=== PATIENT | male | born 1970 | race American Indian/Alaskan Native ===

== ENCOUNTER 2016-08-27 19:46 | Observation (INO) | payer MEDICARE, OTHER ==
[2016-08-27 19:50] VITALS: BMI 27.7
[2016-08-27] MEDS ORDERED: Nitroglycerin 2% Ointment Foilpak UD TOP STA (20:14)
[2016-08-27] MEDS ORDERED: Morphine 2 mg/ml ISec IVP STA (20:14)
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
[2016-08-27 20:27] LABS: HEMATOCRIT 35.9 % (42.0-52.0); MEAN CELL VOLUME 82.9 fL (80.0-105.0); MEAN CORPUSCULAR HEMOGLOBIN 27.9 pg (25.0-35.0); MEAN CORPUSCULAR HGB CONC 33.7 g/dl (31.0-37.0); MEAN PLATELET VOLUME 9.4 fl (7.0-11.0); WHITE BLOOD COUNT 6.7 10^3/ul (4.5-11.0)
[2016-08-27 20:32] LABS: INR 1.02 (0.93-1.08); PARTIAL THROMBOPLASTIN TIME 27.7 Seconds (23.7-30.8)
[2016-08-27 20:50] LABS: ALB/GLOB RATIO 1.2 (1.1-1.8); ALKALINE PHOSPHATASE 42 U/L (38-133); ALT/SGPT 34 U/L (7-56); AST/SGOT 30 U/L (15-59); BILIRUBIN,TOTAL 0.6 mg/dL (0.2-1.3); BLOOD UREA NITROGEN 14 mg/dL (7-21); CALCIUM 9.6 mg/dL (8.4-10.5); CARBON DIOXIDE 24 mmol/L (21-33); CHLORIDE 102 mmol/L (98-107); GFR AFRICAN-AMERICAN > 60; GLUCOSE,RANDOM 98 mg/dL (70-110); POTASSIUM 3.6 mmol/L (3.6-5.0); SODIUM 138 mmol/L (132-148); TOTAL PROTEIN 8.4 g/dL (5.8-8.3)
[2016-08-27 21:01] LABS: TROPONIN I < 0.01 ng/mL
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
[2016-08-28 03:51] VITALS: RESP 20
[2016-08-28 03:54] VITALS: O2SAT 100
--- NOTE | 2016-08-28 08:00 | RAD ---
HISTORY: fever COMPARISON: 03/28/2015 FINDINGS: LUNGS: No active pulmonary disease. PLEURA: No significant pleural effusion identified, no pneumothorax apparent. CARDIOVASCULAR: Normal. OSSEOUS STRUCTURES: No significant abnormalities. VISUALIZED UPPER ABDOMEN: Normal. OTHER FINDINGS: None. IMPRESSION: No active disease.
[2016-08-28 09:55] LABS: ALB/GLOB RATIO 1.2 (1.1-1.8); ALKALINE PHOSPHATASE 41 U/L (38-133); ALT/SGPT 28 U/L (7-56); AST/SGOT 22 U/L (15-59); BILIRUBIN,TOTAL 0.9 mg/dL (0.2-1.3); BLOOD UREA NITROGEN 15 mg/dL (7-21); CALCIUM 9.4 mg/dL (8.4-10.5); CARBON DIOXIDE 24 mmol/L (21-33); CHLORIDE 103 mmol/L (98-107); CHOLESTEROL 232 mg/dL (130-200); GFR AFRICAN-AMERICAN > 60; GLUCOSE,RANDOM 121 mg/dL (70-110); POTASSIUM 3.8 mmol/L (3.6-5.0); SODIUM 138 mmol/L (132-148)
[2016-08-28 10:06] LABS: HEMATOCRIT 35.1 % (42.0-52.0); MEAN CORPUSCULAR HEMOGLOBIN 27.6 pg (25.0-35.0); MEAN CORPUSCULAR HGB CONC 32.5 g/dl (31.0-37.0); MEAN PLATELET VOLUME 10.2 fl (7.0-11.0); RED CELL DISTRIBUTION WIDTH 16.8 % (11.5-14.5); WHITE BLOOD COUNT 7.5 10^3/ul (4.5-11.0)
[2016-08-28] MEDS ORDERED: Barium Sulfate Susp 2.1% w/v, 2.0% w/w 450 mL Bottle PO ONE (10:18)
[2016-08-28 10:26] LABS: FREE T4 0.84 ng/dL (0.78-2.19)
[2016-08-28 10:40] LABS: THYROID STIMULATING HORMONE 1.26 mIU/mL (0.46-4.68)
--- NOTE | 2016-08-28 11:20 | CARD ---
APPROVED REPORT EKG Measurement Heart [id number] <Conclusion> Normal sinus rhythm Inferior infarct, age undetermined Abnormal ECG
--- NOTE | 2016-08-28 11:28 | CARD ---
APPROVED REPORT EKG Measurement Heart [id number] [place] [id number] <Conclusion> Sinus bradycardia Possible Inferior infarct, age undetermined Abnormal ECG
[2016-08-28] MEDS ORDERED: Albuterol 0.5% Inhal Sol (2.5 mg/0.5 ml) UD IH PRN (11:36)
--- NOTE | 2016-08-28 12:18 | CON ---
DATE: 08/28/2016 HISTORY OF PRESENT ILLNESS: The patient is a 46-year-old male who presented with what was described as epigastric discomfort. The patient's description is predominantly epigastric or periumbilical. N o chest pain noted. PAST MEDICAL HISTORY: Is stated to have a myocardial infarction over 10 years ago. He suffers from hypertension, COPD, and he continues to smoke. He stopped his medications on his own reasons. SOCIAL HISTORY: Active smoker. REVIEW OF SYSTEMS: A 14-point review of systems was reviewed in detail. No cardiac symptomatology w as noted. PHYSICAL EXAMINATION: VITAL SIGNS: Stable. NECK: Negative JVD. LUNGS: Without rales. HEART: Reveals S1, S2. EXTREMITIES: Without edema. LABORATORY DATA: EKG is within normal limits. Troponins are negative x 3. IMPRESSION: 1. Atypical chest pain, predominantly abdominal pain. 2. Questionable history of an old myocardial infarction. 3. Chronic obstructive pulmonary disease. 4. No evidence for acute coronary syndrome. 5. Consistent noncompliance with medications, although he is followed by Dr. Narayan in [place]. PLAN: Given these findings, we will discontinue telemetry today. I have discussed with the patient about the need to be back on aspirin as well as his hypertensive medications. The patient is agreeable. I have discussed with the patient about the need to stop smoking. We will arrange for an outpatient stress test. We will discontinue telemetry today. Den Grant MD cc: [id number] TT: 08/28/2016 12:17:29 Confirmation # [id number] Dictation # [id number] an
[2016-08-28 12:35] VITALS: BP 125/62; PULSE 62
[2016-08-28 13:00] VITALS: TEMP 98.2
--- NOTE | 2016-08-28 15:28 | CT ---
PROCEDURE: CT Abdomen and Pelvis without intravenous contrast HISTORY: RLQ pain COMPARISON: None. TECHNIQUE: Without contrast. Contrast Dose: Radiation dose: Total exam DLP = 1004 mGy-cm. This CT exam was performed using one or more of the following dose reduction techniques: Automated exposure control, adjustment of the mA and/or kV according to patient size, and/or use of iterative reconstruction technique. FINDINGS: LOWER THORAX: Unremarkable. LIVER: Unremarkable. No gross lesion or ductal dilatation. GALLBLADDER AND BILE DUCTS: Unremarkable. PANCREAS: Unremarkable. No gross lesion or ductal dilatation. SPLEEN: Unremarkable. ADRENALS: Unremarkable. No mass. KIDNEYS AND URETERS: Unremarkable. No hydronephrosis. No solid mass. VASCULATURE: Unremarkable. No aortic aneurysm. BOWEL: Unremarkable. No obstruction. No gross mural thickening. APPENDIX: Unremarkable. Normal appendix. PERITONEUM: Unremarkable. No free fluid. No free air. LYMPH NODES: Unremarkable. No enlarged lymph nodes. BLADDER: Unremarkable. REPRODUCTIVE: Unremarkable. BONES: No acute fracture. OTHER FINDINGS: None. IMPRESSION: No acute findings. No evidence of appendicitis
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
[2016-08-28 20:22] LABS: URINE APPEARANCE CLEAR (CLEAR); URINE BILIRUBIN NEGATIVE (NEGATIVE); URINE BLOOD NEGATIVE (NEGATIVE); URINE COLOR YELLOW (YELLOW); URINE GLUCOSE (UA) NEGATIVE (NEGATIVE); URINE KETONE NEGATIVE (NEGATIVE); URINE LEUKOCYTE ESTERASE NEGATIVE Leu/uL (NEGATIVE); URINE PROTEIN NEGATIVE mg/dL (<30 mg/dL); URINE UROBILINOGEN 0.2 E.U./dL (<1 E.U./dL)
== END 2016-08-28 19:38 | disposition home or self-care (01) ==
LOC: ED 19:46 → ERH 08-28 00:23 → 2RNO 08-28 02:57
PROVIDERS: ADMIT Hospitalist; ATTEND Internal Medicine
DX: R07.89 Other chest pain (principal); J44.9 Chronic obstructive pulmonary disease, unspecified; Z91.14 Patient's other noncompliance with medication regimen; F17.210 Nicotine dependence, cigarettes, uncomplicated; I25.2 Old myocardial infarction; I10 Essential (primary) hypertension; M54.9 Dorsalgia, unspecified; K59.00 Constipation, unspecified; R10.31 Right lower quadrant pain; R68.84 Jaw pain
CPT/HCPCS: 71010; 74176; 80053; 80061; 81003; 82550; 83036; 83615; 84439; 84443; 84484; 85027; 85610; 85730; 93005; 96372; 96374; 99285; G0378; G0480; J1644; J2270

== ENCOUNTER 2017-11-28 01:23 | Observation (INO) | payer MEDICARE, OTHER ==
[2017-11-28 01:44] VITALS: O2SAT 96
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
[2017-11-28 02:45] LABS: BASO # 0.03 K/mm3 (0.0-2.0); BASO % 0.4 % (0.0-3.0); EOS % 0.5 % (1.5-5.0); GRAN # 3.36 (1.4-6.5); GRAN % 42.9 % (50.0-68.0); LYMPH # 3.7 (1.2-3.4); LYMPH % 46.7 % (22.0-35.0); MEAN CELL VOLUME 81.1 fl (80.0-105.0); MEAN CORPUSCULAR HEMOGLOBIN 27.5 pg (25.0-35.0); MEAN CORPUSCULAR HGB CONC 33.9 g/dl (31.0-37.0); MEAN PLATELET VOLUME 10.2 fl (7.0-11.0); MONO # 0.7 (0.1-0.6); MONO % 9.5 % (1.0-6.0); RBC 4.72 10^6/uL (3.5-6.1); WHITE BLOOD COUNT 7.8 10^3/ul (4.5-11.0)
[2017-11-28 02:49] LABS: ALB/GLOB RATIO 1.3 (1.1-1.8); ALBUMIN 4.2 g/dL (3.0-4.8); ALT/SGPT 28 U/L (7-56); AST/SGOT 35 U/L (17-59); BLOOD UREA NITROGEN 24 mg/dL (7-21); CALCIUM 9.2 mg/dL (8.4-10.5); GFR AFRICAN-AMERICAN > 60; GFR NON-AFRICAN AMERICAN > 60
[2017-11-28 02:51] LABS: INR 1.01 (0.93-1.08); PARTIAL THROMBOPLASTIN TIME 30.5 Seconds (25.1-36.5); PROTHROMBIN TIME 11.5 SECONDS (9.4-12.5)
[2017-11-28 03:02] LABS: TROPONIN I < 0.01 ng/mL
[2017-11-28] MEDS ORDERED: Albuterol-Ipratrop 3 mg / 0.5 (3 ml) UD IH PRN (04:31)
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
[2017-11-28 06:17] VITALS: BMI 25.0
[2017-11-28 06:56] LABS: BASO # 0.03 K/mm3 (0.0-2.0); BASO % 0.4 % (0.0-3.0); EOS # 0.1 (0.0-0.7); GRAN # 2.63 (1.4-6.5); GRAN % 38.6 % (50.0-68.0); LYMPH # 3.4 (1.2-3.4); LYMPH % 50.2 % (22.0-35.0); MEAN CELL VOLUME 81.8 fl (80.0-105.0); MEAN CORPUSCULAR HEMOGLOBIN 27.5 pg (25.0-35.0); MEAN CORPUSCULAR HGB CONC 33.7 g/dl (31.0-37.0); MEAN PLATELET VOLUME 9.8 fl (7.0-11.0); MONO # 0.7 (0.1-0.6); MONO % 9.8 % (1.0-6.0); RBC 4.72 10^6/uL (3.5-6.1); WHITE BLOOD COUNT 6.8 10^3/ul (4.5-11.0)
[2017-11-28 07:25] LABS: ALB/GLOB RATIO 1.3 (1.1-1.8); ALBUMIN 4.1 g/dL (3.0-4.8); ALT/SGPT 23 U/L (7-56); AST/SGOT 24 U/L (17-59); BLOOD UREA NITROGEN 27 mg/dL (7-21); CALCIUM 9.2 mg/dL (8.4-10.5); GFR AFRICAN-AMERICAN > 60; GFR NON-AFRICAN AMERICAN > 60; HDL CHOLESTEROL 60 mg/dL (29-60)
[2017-11-28 07:28] LABS: TROPONIN I < 0.01 ng/mL
[2017-11-28 07:35] LABS: LDL CHOLESTEROL 86 mg/dL (0-129)
--- NOTE | 2017-11-28 09:17 | RAD ---
Date of service: 11/28/2017 HISTORY: CHEST PAIN COMPARISON: 08/27/2016 FINDINGS: LUNGS: No active pulmonary disease. PLEURA: No significant pleural effusion identified, no pneumothorax apparent. CARDIOVASCULAR: Normal. OSSEOUS STRUCTURES: No significant abnormalities. VISUALIZED UPPER ABDOMEN: Normal. OTHER FINDINGS: None. IMPRESSION: No active disease.
[2017-11-28] MEDS ORDERED: Enoxaparin 40 mg Syringe SC SCH (10:00)
--- NOTE | 2017-11-28 17:11 | CP.PCM.DIS ---
<Charlie Miramontes - Last Filed: 11/28/17 17:08> Provider - Provider Date of Admission: 11/28/17 03:43 Attending physician: Osman Gillette MD Primary care physician: Miky Olivier MD Time Spent in preparation of Discharge (in minutes): 45 Diagnosis - Discharge Diagnosis (1) Atypical chest pain Status: Acute Priority: Medium (2) Hypertension Status: Chronic Priority: High Hospital Course - Lab Results Lab Results: Most Recent Lab Values WBC 6.8 10^3/ul (4.5-11.0) 11/28/17 06:00 RBC 4.72 10^6/uL (3.5-6.1) 11/28/17 06:00 Hgb 13.0 g/dL (14.0-18.0) L 11/28/17 06:00 Hct 38.6 % (42.0-52.0) L 11/28/17 06:00 MCV 81.8 fl (80.0-105.0) 11/28/17 06:00 MCH 27.5 pg (25.0-35.0) 11/28/17 06:00 MCHC 33.7 g/dl (31.0-37.0) 11/28/17 06:00 RDW 16.0 % (11.5-14.5) H 11/28/17 06:00 Plt Count 250 10^3/uL (120.0-450.0) 11/28/17 06:00 MPV 9.8 fl (7.0-11.0) 11/28/17 06:00 Gran % 38.6 % (50.0-68.0) L 11/28/17 06:00 Lymph % (Auto) 50.2 % (22.0-35.0) H 11/28/17 06:00 Burnet % (Auto) 9.8 % (1.0-6.0) H 11/28/17 06:00 Eos % (Auto) 1.0 % (1.5-5.0) L 11/28/17 06:00 Baso % (Auto) 0.4 % (0.0-3.0) 11/28/17 06:00 Gran # 2.63 (1.4-6.5) 11/28/17 06:00 Lymph # (Auto) 3.4 (1.2-3.4) 11/28/17 06:00 Burnet # (Auto) 0.7 (0.1-0.6) H 11/28/17 06:00 Eos # (Auto) 0.1 (0.0-0.7) 11/28/17 06:00 Baso # (Auto) 0.03 K/mm3 (0.0-2.0) 11/28/17 06:00 PT 11.5 SECONDS (9.4-12.5) 11/28/17 01:35 INR 1.01 (0.93-1.08) 11/28/17 01:35 APTT 30.5 Seconds (25.1-36.5) 11/28/17 01:35 Sodium 141 mmol/L (132-148) 11/28/17 06:00 Potassium 4.0 mmol/L (3.6-5.0) 11/28/17 06:00 Chloride 107 mmol/L (98-107) 11/28/17 06:00 Carbon Dioxide 25 mmol/L (21-33) 11/28/17 06:00 Anion Gap 14 (10-20) 11/28/17 06:00 BUN 27 mg/dL (7-21) H 11/28/17 06:00 Creatinine 0.9 mg/dl (0.8-1.5) 11/28/17 06:00 Est GFR ( Amer) > 60 11/28/17 06:00 Est GFR (Non-Af Amer) > 60 11/28/17 06:00 Random Glucose 87 mg/dL (70-110) 11/28/17 06:00 Hemoglobin A1c 5.6 % (4.2-6.5) 11/28/17 06:00 Calcium 9.2 mg/dL (8.4-10.5) 11/28/17 06:00 Magnesium 2.2 mg/dL (1.7-2.2) 11/28/17 06:00 Total Bilirubin 0.4 mg/dL (0.2-1.3) 11/28/17 06:00 AST 24 U/L (17-59) 11/28/17 06:00 ALT 23 U/L (7-56) 11/28/17 06:00 Alkaline Phosphatase 42 U/L (38-126) 11/28/17 06:00 Lactate Dehydrogenase 321 U/L (333-699) L 11/28/17 01:35 Total Creatine Kinase 120 U/L (35-230) 11/28/17 01:35 Troponin I < 0.01 ng/mL 11/28/17 12:00 Total Protein 7.2 g/dL (5.8-8.3) 11/28/17 06:00 Albumin 4.1 g/dL (3.0-4.8) 11/28/17 06:00 Globulin 3.2 gm/dL 11/28/17 06:00 Albumin/Globulin Ratio 1.3 (1.1-1.8) 11/28/17 06:00 Triglycerides 147 mg/dL (35-160) 11/28/17 06:00 Cholesterol 184 mg/dL (130-200) 11/28/17 06:00 LDL Cholesterol Direct 86 mg/dL (0-129) 11/28/17 06:00 HDL Cholesterol 60 mg/dL (29-60) 11/28/17 06:00 TSH 3rd Generation 1.83 mIU/mL (0.46-4.68) 11/28/17 06:00 - Hospital Course Hospital Course: Patient is a 47 year old male with a past medical history of hypertension who was admitted for evaluation and treatment of chest pain. With the use of physical examinations, lab work, and imaging the patient was diagnosed with and treated for chest pain along with the patients chronic medical conditions. During their hospital stay the patient was seen by cardiology (Dr. Castañeda) whose recommendations were both appreciated and utilized in the care for this patient. Acute coronary syndrome was ruled out as troponins were less than 0.01 x 3 and the EKG revealed NSR, HR 54 bpm, QTc 408ms, and no defining ST T wave changes. Dr. Castañeda determined that the patient did not require further inpatient cardiology work up. During their hospital stay the patient underwent a chest xray which was reviewed, appreciated, and utilized in the management of the patients clinical course. CXR revealed no active disease. The patient was treated with aspirin, statin, hctz, lisinopril, amongst other empiric/ therapeutic medications. At this time the patient is medically stable for discharge. Patient understands and appreciates discharge plan. Patient instructed to follow up with primary care physician and referrals within three to five days from discharge. Furthermore, the patient is instructed to take medications as prescribed and to return to emergency room for evaluation of intractable headache, fever, chills, dizziness, chest pain, shortness of breath , abdominal pain, nausea, vomiting, diarrhea, constipation, and urinary symptoms. This is a brief summary of the patients hospital course. Please see patient chart for full details Discharge Exam - Additional Findings Additional findings: - Constitutional Appears: No Acute Distress - Head Exam Head Exam: ATRAUMATIC, NORMAL INSPECTION, NORMOCEPHALIC - Eye Exam Eye Exam: EOMI - ENT Exam ENT Exam: Mucous Membranes Moist - Neck Exam Neck exam: Positive for: Full Rom, Normal Inspection - Respiratory Exam Respiratory Exam: Clear to Auscultation Bilateral, NORMAL BREATHING PATTERN. absent: Rales, Rhonchi, Wheezes, Stridor - Cardiovascular Exam Cardiovascular Exam: REGULAR RHYTHM, RRR, +S1, +S2 - GI/Abdominal Exam GI & Abdominal Exam: Normal Bowel Sounds, Soft. absent: Distended - Extremities Exam Extremities exam: Positive for: full ROM, normal inspection. Negative for: calf tenderness, joint swelling, pedal edema - Neurological Exam Neurological exam: Alert, Patient is awake, alert, responds to verbal stimuli, answers questions appropriately, follows commands, and moves extremities past midline - Psychiatric Exam Psychiatric exam: Normal Affect, Normal Mood - Skin Skin Exam: Dry, Normal Color Discharge Plan - Follow Up Plan Condition: STABLE Disposition: HOME/ ROUTINE Instructions: Quitting Smoking for Older Adults, Chest Pain (DC), Quitting Smoking, Drugs to Help You Stop Using Tobacco Additional Instructions: Patient Instructions: 1. Take medications as prescribed. 2. Follow up with your primary care physician and referrals within three to five days from discharge. 3. Return to the emergency room for evaluation of worsening symptoms and/or intractable headache, fever, chills, dizziness, chest pain, shortness of breath , abdominal pain, nausea, vomiting, diarrhea, constipation, and urinary symptoms. Referrals: Miky Olivier MD [Primary Care Provider] - Willis Webb MD [Staff Provider] - <Osman Gillette - Last Filed: 11/29/17 12:32> Provider - Provider Date of Admission: 11/28/17 03:43 Attending physician: Osman Gillette MD Primary care physician: Miky Olivier MD Hospital Course - Lab Results Lab Results: Most Recent Lab Values WBC 6.8 10^3/ul (4.5-11.0) 11/28/17 06:00 RBC 4.72 10^6/uL (3.5-6.1) 11/28/17 06:00 Hgb 13.0 g/dL (14.0-18.0) L 11/28/17 06:00 Hct 38.6 % (42.0-52.0) L 11/28/17 06:00 MCV 81.8 fl (80.0-105.0) 11/28/17 06:00 MCH 27.5 pg (25.0-35.0) 11/28/17 06:00 MCHC 33.7 g/dl (31.0-37.0) 11/28/17 06:00 RDW 16.0 % (11.5-14.5) H 11/28/17 06:00 Plt Count 250 10^3/uL (120.0-450.0) 11/28/17 06:00 MPV 9.8 fl (7.0-11.0) 11/28/17 06:00 Gran % 38.6 % (50.0-68.0) L 11/28/17 06:00 Lymph % (Auto) 50.2 % (22.0-35.0) H 11/28/17 06:00 Burnet % (Auto) 9.8 % (1.0-6.0) H 11/28/17 06:00 Eos % (Auto) 1.0 % (1.5-5.0) L 11/28/17 06:00 Baso % (Auto) 0.4 % (0.0-3.0) 11/28/17 06:00 Gran # 2.63 (1.4-6.5) 11/28/17 06:00 Lymph # (Auto) 3.4 (1.2-3.4) 11/28/17 06:00 Burnet # (Auto) 0.7 (0.1-0.6) H 11/28/17 06:00 Eos # (Auto) 0.1 (0.0-0.7) 11/28/17 06:00 Baso # (Auto) 0.03 K/mm3 (0.0-2.0) 11/28/17 06:00 PT 11.5 SECONDS (9.4-12.5) 11/28/17 01:35 INR 1.01 (0.93-1.08) 11/28/17 01:35 APTT 30.5 Seconds (25.1-36.5) 11/28/17 01:35 Sodium 141 mmol/L (132-148) 11/28/17 06:00 Potassium 4.0 mmol/L (3.6-5.0) 11/28/17 06:00 Chloride 107 mmol/L (98-107) 11/28/17 06:00 Carbon Dioxide 25 mmol/L (21-33) 11/28/17 06:00 Anion Gap 14 (10-20) 11/28/17 06:00 BUN 27 mg/dL (7-21) H 11/28/17 06:00 Creatinine 0.9 mg/dl (0.8-1.5) 11/28/17 06:00 Est GFR ( Amer) > 60 11/28/17 06:00 Est GFR (Non-Af Amer) > 60 11/28/17 06:00 Random Glucose 87 mg/dL (70-110) 11/28/17 06:00 Hemoglobin A1c 5.6 % (4.2-6.5) 11/28/17 06:00 Calcium 9.2 mg/dL (8.4-10.5) 11/28/17 06:00 Magnesium 2.2 mg/dL (1.7-2.2) 11/28/17 06:00 Total Bilirubin 0.4 mg/dL (0.2-1.3) 11/28/17 06:00 AST 24 U/L (17-59) 11/28/17 06:00 ALT 23 U/L (7-56) 11/28/17 06:00 Alkaline Phosphatase 42 U/L (38-126) 11/28/17 06:00 Lactate Dehydrogenase 321 U/L (333-699) L 11/28/17 01:35 Total Creatine Kinase 120 U/L (35-230) 11/28/17 01:35 Troponin I < 0.01 ng/mL 11/28/17 12:00 Total Protein 7.2 g/dL (5.8-8.3) 11/28/17 06:00 Albumin 4.1 g/dL (3.0-4.8) 11/28/17 06:00 Globulin 3.2 gm/dL 11/28/17 06:00 Albumin/Globulin Ratio 1.3 (1.1-1.8) 11/28/17 06:00 Triglycerides 147 mg/dL (35-160) 11/28/17 06:00 Cholesterol 184 mg/dL (130-200) 11/28/17 06:00 LDL Cholesterol Direct 86 mg/dL (0-129) 11/28/17 06:00 HDL Cholesterol 60 mg/dL (29-60) 11/28/17 06:00 TSH 3rd Generation 1.83 mIU/mL (0.46-4.68) 11/28/17 06:00 Attending/Attestation - Attestation I have personally seen and examined this patient.: Yes I have fully participated in the care of the patient.: Yes I have reviewed all pertinent clinical information, including history, physical exam and plan: Yes Notes (Text): 11/29/17 12:24 Attending note; Patient seen and examined with resident. Patient is a 47-year-old male admitted with chest pain. pain was in the mid and right chest and reproducible. Mostly musculoskeletal pain. Started on aspirin. EKG no acute ST-T changes. Cardiac enzymes 3 negative. Cardiology evaluation appreciated. Currently patient is pain-free. Also treated for possible GERD with Protonix. History of hypertension; continue lisinopril and hydro-thiazide. Patient is noncompliance with medication. Patient was recently given prescription by PMD. Patient was given stress test appointment during last admission but he did not follow-up. Active smoking; smoking cessation is strongly advised. Medication compliance and follow-up insisted in detail. Advised to follow-up with PMD Princess Parikh for outpatient stress test and follow- up. 11/29/17 12:30 11/29/17 12:31
[2017-11-28 17:52] VITALS: BP 103/55; PULSE 60; RESP 18; TEMP 98
--- NOTE | 2017-11-28 19:01 | CARD ---
APPROVED REPORT Date of service: 11/28/2017 EKG Measurement Heart [id number] <Conclusion> Normal sinus rhythm Inferior infarct, age undetermined Abnormal ECG
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
[2017-11-29] MEDS ORDERED: Pantoprazole 40 mg EC Tab PO SCH (07:30)
== END 2017-11-28 18:38 | disposition home or self-care (01) ==
LOC: ED 01:23 → ERH 03:43 → 2RNO 04:52
PROVIDERS: ADMIT Internal Medicine; ATTEND Internal Medicine
DX: R07.89 Other chest pain (principal); I10 Essential (primary) hypertension; F17.210 Nicotine dependence, cigarettes, uncomplicated; I25.2 Old myocardial infarction; Z91.14 Patient's other noncompliance with medication regimen; Z83.3 Family history of diabetes mellitus; Z82.49 Family history of ischemic heart disease and other diseases of the circulatory system; Z80.0 Family history of malignant neoplasm of digestive organs
CPT/HCPCS: 71045; 80053; 80061; 82550; 83036; 83615; 83735; 84443; 84484; 85025; 85610; 85730; 93005; 99285; C9113; G0378; J1650

== ENCOUNTER 2017-12-15 20:50 | Emergency (ER) | payer MEDICARE, OTHER ==
[2017-12-15 20:50] VITALS: BMI 25.0
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
[2017-12-15 22:01] VITALS: BP 139/87; PULSE 78; RESP 16; TEMP 98.4; O2SAT 98
== END 2017-12-15 22:05 | disposition home or self-care (01) ==
LOC: ED 20:50
DX: K02.9 Dental caries, unspecified (principal)
CPT/HCPCS: 96372; 99282; J1885

== ENCOUNTER 2018-05-26 21:47 | Emergency (ER) | payer MEDICARE ==
[2018-05-26 22:16] VITALS: TEMP 97.7
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
[2018-05-26 23:13] LABS: BASO # 0.02 K/mm3 (0.0-2.0); BASO % 0.2 % (0.0-3.0); EOS % 0.2 % (1.5-5.0); GRAN # 4.08 (1.4-6.5); GRAN % 47.5 % (50.0-68.0); HEMOGLOBIN 13.6 g/dL (14.0-18.0); LYMPH # 3.9 (1.2-3.4); MEAN CELL VOLUME 83.7 fl (80.0-105.0); MEAN CORPUSCULAR HEMOGLOBIN 27.8 pg (25.0-35.0); MEAN CORPUSCULAR HGB CONC 33.2 g/dl (31.0-37.0); MEAN PLATELET VOLUME 10.6 fl (7.0-11.0); MONO # 0.6 (0.1-0.6); MONO % 7.1 % (1.0-6.0); RBC 4.9 10^6/uL (3.5-6.1); RED CELL DISTRIBUTION WIDTH 15.4 % (11.5-14.5); WHITE BLOOD COUNT 8.6 10^3/uL (4.5-11.0)
[2018-05-26 23:21] LABS: ALB/GLOB RATIO 1.2 (1.1-1.8); ALBUMIN 4.8 g/dL (3.0-4.8); BLOOD UREA NITROGEN 11 mg/dL (7-21); CALCIUM 9.6 mg/dL (8.4-10.5); GFR NON-AFRICAN AMERICAN > 60
[2018-05-26 23:25] LABS: ALT/SGPT 29 U/L (7-56); AST/SGOT 37 U/L (17-59)
[2018-05-26 23:33] LABS: TROPONIN I < 0.01 ng/mL
[2018-05-27 01:59] VITALS: BP 132/74; PULSE 72; RESP 18; O2SAT 98
--- NOTE | 2018-05-27 07:25 | RAD ---
Date of service: 05/26/2018 HISTORY: chest pain COMPARISON: 11/28/2017 FINDINGS: LUNGS: No active pulmonary disease. PLEURA: No significant pleural effusion identified, no pneumothorax apparent. CARDIOVASCULAR: No aortic atherosclerotic calcification present. Normal cardiac size. No pulmonary vascular congestion. OSSEOUS STRUCTURES: No significant abnormalities. VISUALIZED UPPER ABDOMEN: Normal. OTHER FINDINGS: None. IMPRESSION: No active disease.
--- NOTE | 2018-05-27 20:08 | CARD ---
APPROVED REPORT Date of service: 05/26/2018 EKG Measurement Heart [id number] <Conclusion> Normal sinus rhythm Normal ECG
== END 2018-05-27 00:50 | disposition home or self-care (01) ==
LOC: ED 21:47
DX: M25.511 Pain in right shoulder (principal); I10 Essential (primary) hypertension; I25.2 Old myocardial infarction; Z87.891 Personal history of nicotine dependence
CPT/HCPCS: 71045; 80053; 82550; 84484; 85025; 93005; 96374; 99284; J1885